=== PATIENT | female | born 1990 | race Caucasian/White ===

== ENCOUNTER 2021-05-03 06:00 | Inpatient (IN) ==
[2021-05-03] MEDS ORDERED: Metoclopramide 10 MG/2 ML VIAL IVP PRN (06:17)
[2021-05-03] MEDS ORDERED: Naloxone 0.4 MG/ML INJ IVP PRN ×2 (06:17→09:53)
[2021-05-03] MEDS ORDERED: Famotidine 20 MG/2 ML VIAL IVP PRN (06:17)
[2021-05-03] MEDS ORDERED: Lidocaine 1% 20 ML MDV INFILT PRN (06:17)
[2021-05-03] MEDS ORDERED: miSOPROStoL 25 MCG TABLET PO PRN (06:50)
[2021-05-03 06:58] LABS: Basophils % 0.3 %; Eosinophils # 0.1 K/mcL (0.0-0.6); Eosinophils % 1.1 %; Hemoglobin 13.3 g/dL (11.5-15.4); Immature Granulocytes % 1.8 % (0-4); Lymphocytes # 2.1 K/mcL (0.6-4.6); Lymphocytes % 21.5 %; Mean Corpuscular HGB Conc 33.3 g/dL (31.6-35.5); Mean Corpuscular Hemoglobin 30.9 pg (28.0-33.3); Mean Corpuscular Volume 92.8 fL (83.0-100.0); Mean Platelet Volume 12.5 fL (9.4-12.4); Monocytes % 10.3 %; Neutrophils # 6.3 K/mcL (1.6-8.9); Platelet Count 153 K/mcL (140-400); Red Blood Count 4.31 M/mcL (3.82-4.97); Red Cell Distribution Width 13.8 % (11.5-14.5); White Blood Count 9.7 K/mcL (4.3-11.1)
[2021-05-03 07:40] LABS: Influenza A PCR Negative (Negative); Influenza B PCR Negative (Negative); Resp. Syncytial Virus PCR Negative (Negative)
[2021-05-03 07:53] LABS: SARS-CoV-2 by PCR (In House) Negative (Negative)
[2021-05-03] MEDS ORDERED: EPHEDrine 50 MG/ML VIAL IVP PRN (09:53)
[2021-05-03] MEDS ORDERED: *HR* FentaNYL (PF) 100 MCG/2 ML VIAL EP ONE (09:53)
[2021-05-03] MEDS ORDERED: Ondansetron 4 MG/2 ML VIAL IVP PRN (09:53)
[2021-05-03] MEDS ORDERED: Ropivacaine/PF 0.2% 20 ML VIAL EP ONE (09:53)
[2021-05-03] MEDS ORDERED: Epidural Premix (fent/bupiv) 110 ML EP SCH (10:00)
[2021-05-03 10:54] LABS: Amphetamine Screen,Urine Negative ng/mL (Cutoff=1000); Barbiturate Screen,Urine Negative ng/mL (Cutoff=200); Benzodiazepines Screen,Urine Negative ng/mL (Cutoff=200); Cannabinoid Screen,Urine Negative ng/mL (Cutoff = 50); Cocaine Screen,Urine Negative ng/mL (Cutoff= 300); Opiate Screen,Urine Negative ng/mL (Cutoff=300); Phencyclidine Screen,Urine Negative ng/mL (Cutoff=25)
[2021-05-03] MEDS ORDERED: Oxytocin 20 units/ LR 1000 mL 20 UNIT/1,000 ML BAG IVC ONE (11:12)
[2021-05-03] MEDS ORDERED: Oxytocin 20 units/ LR 1000 mL 20 UNIT/1,000 ML BAG IVC SCH (11:15)
[2021-05-03] MEDS: Ringers Solution, Lactated 1,000 ML IVC SCH ×2 (11:21→18:50)
[2021-05-03] MEDS: *HR* Nalbuphine 10 MG/ML AMPUL IV PRN ×2 (13:21→18:50)
[2021-05-04] MEDS ORDERED: Ropivacaine/PF 0.2% 20 ML VIAL ONE (03:48)
[2021-05-04] MEDS: Ondansetron 4 MG/2 ML VIAL IVP PRN ×2 (09:49→17:22)
[2021-05-04] MEDS ORDERED: Methylergonovine 0.2 MG/ML AMPUL IM ONE (15:35)
[2021-05-04] MEDS ORDERED: Acetaminophen 325 MG TABLET PO ONE (17:07)
[2021-05-04] MEDS ORDERED: *HR* HYDROmorphone (PF) 1 MG/ML SYRINGE ONE (17:45)
[2021-05-04] MEDS ORDERED: *HR* HYDROmorphone (PF) 1 MG/ML SYRINGE IM ONE (17:57)
[2021-05-04] MEDS ORDERED: Lanolin 7 G OINT...G. TP PRN (19:26)
[2021-05-04] MEDS ORDERED: Benzocaine/Menthol 56 GM AEROSOL SPRAY TP PRN (19:26)
[2021-05-04] MEDS ORDERED: Oxytocin 20 units/ LR 1000 mL 20 UNIT/1,000 ML BAG IVC SCH (19:26)
[2021-05-04] MEDS ORDERED: *HR* OxyCODONE Immed Rel 5 MG TABLET PO PRN (19:26)
[2021-05-04] MEDS ORDERED: Ondansetron ODT 4 MG TAB.RAPDIS SL PRN (19:26)
[2021-05-04] MEDS ORDERED: Oxytocin 20 units/ LR 1000 mL 20 UNIT/1,000 ML BAG IVC ONE (19:26)
[2021-05-04] MEDS: Ibuprofen 600 MG TABLET PO SCH (21:05)
[2021-05-04] MEDS: Acetaminophen 325 MG TABLET PO SCH (23:52)
[2021-05-05] MEDS: Ibuprofen 600 MG TABLET PO SCH ×2 (03:48→09:50)
[2021-05-05 04:16] LABS: Basophils % 0.2 %; Eosinophils # 0.1 K/mcL (0.0-0.6); Eosinophils % 0.5 %; Hematocrit 25.9 % (35.3-44.9); Hemoglobin 8.5 g/dL (11.5-15.4); Immature Granulocytes % 0.5 % (0-4); Lymphocytes # 1.7 K/mcL (0.6-4.6); Lymphocytes % 10.1 %; Mean Corpuscular HGB Conc 32.8 g/dL (31.6-35.5); Mean Corpuscular Hemoglobin 30.5 pg (28.0-33.3); Mean Corpuscular Volume 92.8 fL (83.0-100.0); Mean Platelet Volume 12.3 fL (9.4-12.4); Monocytes # 1.1 K/mcL (0.0-1.3); Monocytes % 6.9 %; Neutrophils # 13.5 K/mcL (1.6-8.9); Platelet Count 124 K/mcL (140-400); Red Blood Count 2.79 M/mcL (3.82-4.97); Segmented Neutrophils % 81.8 %; White Blood Count 16.5 K/mcL (4.3-11.1)
[2021-05-05] MEDS: Acetaminophen 325 MG TABLET PO SCH ×2 (05:59→14:35)
[2021-05-05 07:49] VITALS: BP 98/63; PULSE 89; TEMP 97.9; O2SAT 100
[2021-05-05] MEDS ORDERED: Prenatal Vit/FA 1 EACH TABLET PO SCH (09:00)
[2021-05-05] MEDS ORDERED: Rho Immune Globulin 1,500 UNIT SYRINGE IM ONE (14:03)
== END 2021-05-05 15:36 | disposition home or self-care (01) | DRG 768 ==
LOC: 1NENULAB 06:16 → 1NENUOBS 05-04 19:27
PROVIDERS: ADMIT Student in an Organized Health Care Education/Training Program; ATTEND Student in an Organized Health Care Education/Training Program